=== PATIENT | male | born 1965 | race Caucasian/White ===

== ENCOUNTER 2025-07-03 14:43 | Emergency (ER) | payer BC, OTHER | END 2025-07-03 16:13 | disposition home or self-care (01) | LOC: JP.ED 14:43 | DX: R33.9 Retention of urine, unspecified (principal); J45.909 Unspecified asthma, uncomplicated; E78.00 Pure hypercholesterolemia, unspecified; Z79.899 Other long term (current) drug therapy | CPT/HCPCS: 99283 ==